=== PATIENT | male | born 1975 | race Two or more races ===

== ENCOUNTER 2021-08-24 16:25 | Emergency (ER) | payer OTHER ==
[~2021-08-24] VITALS: Ht 172.7 cm; Wt 93.4 kg
[2021-08-24 17:53] VITALS: BP 148/93
[2021-08-24] MEDS ORDERED: KETOROLAC TROMETH 60MG/2ML VIAL IM ONE (18:00)
== END 2021-08-24 18:28 | disposition home or self-care (01) ==
LOC: ER 16:25
DX: S93.602A Unspecified sprain of left foot, initial encounter (principal); E78.5 Hyperlipidemia, unspecified; I10 Essential (primary) hypertension; W01.0XXA Fall on same level from slipping, tripping and stumbling without subsequent striking against object, initial encounter; Y93.89 Activity, other specified; Y92.89 Other specified places as the place of occurrence of the external cause; Y99.8 Other external cause status
CPT/HCPCS: 73630; 96372; J1885

== ENCOUNTER 2024-03-16 08:59 | Emergency (ER) | payer OTHER ==
[~2024-03-16] VITALS: Ht 172.7 cm; Wt 98.4 kg
[2024-03-16 10:07] VITALS: BP 144/99; PULSE 77; RESP 16; TEMP 98.3; O2SAT 98
[2024-03-16] MEDS: methylPREDNISolone SOD SUCC 125 MG/2 ML VL IM ONE (10:21)
[2024-03-16] MEDS: KETOROLAC TROMETH 30 MG/ML 1ML VIAL IM ONE (10:23)
[2024-03-16] MEDS ORDERED: CYCL-837 PO (11:18)
== END 2024-03-16 11:44 | disposition home or self-care (01) ==
LOC: ER 08:59
DX: M54.16 Radiculopathy, lumbar region (principal); E78.5 Hyperlipidemia, unspecified; I10 Essential (primary) hypertension
CPT/HCPCS: 96372; 99284; J1885; J2919